=== PATIENT | male | born 1960 | race Caucasian/White ===

== ENCOUNTER 2018-12-21 13:09 | Outpatient (CLI) | payer MEDICARE, MEDICAID ==
[~2018-12-21 13:09] MED LIST: BARIUM SULFATE 340 ML SUSP.RECON***PROCEDURE AREA ONLY**DONT ENTER PO ONE
== END 2018-12-21 23:59 | disposition home or self-care (01) ==
LOC: RAD 13:09
PROVIDERS: ATTEND Nurse Practitioner Family
DX: R13.14 Dysphagia, pharyngoesophageal phase (principal); K21.9 Gastro-esophageal reflux disease without esophagitis
CPT/HCPCS: 74230

== ENCOUNTER 2019-04-29 04:15 | Emergency (ER) | payer MEDICARE, MEDICAID ==
[~2019-04-29] VITALS: Ht 170.2 cm; Wt 48.0 kg
--- NOTE | 2019-04-29 04:35 | NUR ---
MATHEW RESTREPO MD, RECEIVED VO FOR CTS
[2019-04-29] MEDS ORDERED: OMEP40CA13 PO (04:41)
[2019-04-29] MEDS ORDERED: CALC-1197 PO (04:41)
[2019-04-29] MEDS ORDERED: BENZ1TAB7 PO (04:41)
[2019-04-29] MEDS ORDERED: DOCU-281 PO (04:41)
[2019-04-29] MEDS ORDERED: OXYB5TAB16 PO (04:41)
[2019-04-29] MEDS ORDERED: CETI-194 PO (04:41)
[2019-04-29] MEDS ORDERED: QUET50TA22 PO ×2 (04:41→04:44)
[2019-04-29] MEDS ORDERED: FLUV50TA3 PO (04:41)
[2019-04-29] MEDS ORDERED: [UNRECOGNIZED DRUG - OTHER] PO (04:41)
[2019-04-29] MEDS ORDERED: PRAZ1CAP5 PO (04:44)
[2019-04-29] MEDS ORDERED: FLUT50DI3 IH (04:44)
--- NOTE | 2019-04-29 04:59 | NUR ---
CAREGIVER SAYS HE IS MOVING AROUND TOO MUCH AND WILL NEED TO BE MEDICATED FOR CT.
[2019-04-29] MEDS ORDERED: morphine 4 MG/ML inj SYRINge IV ONE (05:15)
[2019-04-29] MEDS ORDERED: normal saline 1000ML IV soln IVB ONE (05:15)
[2019-04-29] MEDS ORDERED: ondansetron/PF 4mg/2ml inj IV ONE (05:15)
[2019-04-29] MEDS ORDERED: NORMAL SALINE IV ONE (05:30)
[2019-04-29] MEDS ORDERED: KETAMINE IV ONE (05:30)
[2019-04-29 06:14] LABS: CLARITY,URINE CLOUDY (Clear); COLOR,URINE YELLOW (Yellow); GLUCOSE, URINE NEGATIVE (Neg); KETONES,URINE NEGATIVE (Neg); LEUKOCYTE ESTERASE ,URINE LARGE (Neg); NITRITES, URINE NEGATIVE (Neg); OCCULT BLOOD,URINE TRACE-INTACT (Neg); PROTEIN,URINE NEGATIVE (Neg); UROBILINOGEN,URINE 0.2 E.U/dL (0.2-1.0)
[2019-04-29 06:19] LABS: UA COLLECTION TYPE STRAIGHT CATH
[2019-04-29 06:20] LABS: BACTERIA,URINE 4+ /HPF (Neg); MUCUS STRANDS FEW /LPF (Neg); SQUAMOUS EPITHELIAL CELL,UR FEW /LPF (FEW); WBC,URINE TNTC /HPF (0-4)
[2019-04-29 06:23] LABS: BASOPHILS % (AUTO) 0.2 % (0-1); EOSINOPHILS % (AUTO) 0 % (0-6); HEMATOCRIT 34.8 % (42.0-52.0); HEMOGLOBIN 11.7 g/dl (14.0-17.9); LYMPHOCYTES # (AUTO) 0.8 X10'3 (1.1-4.8); LYMPHOCYTES % (AUTO) 7.5 % (21-51); MEAN CORPUSCULAR HEMOGLOBIN 28.9 PG (27.0-31.0); MEAN CORPUSCULAR HGB CONC 33.5 g/dL (33.0-36.5); MEAN CORPUSCULAR VOLUME 86.1 FL (78-98); MEAN PLATELET VOLUME 7.6 FL (7.4-10.4); MONOCYTES # (AUTO) 0.6 X10'3 (0-0.9); MONOCYTES % (AUTO) 5.6 % (2-12); NEUTROPHILS # (AUTO) 9.8 X10'3 (1.8-7.7); NEUTROPHILS % (AUTO) 86.7 % (42-75); PARTIAL THROMBOPLASTIN TIME 26 SECONDS (22-32); PLATELET COUNT 166 X10'3 (140-440); RED BLOOD COUNT 4.04 X10'6 (4.70-6.10); RED CELL DISTRIBUTION WIDTH 13.2 % (11.5-14.5); WHITE BLOOD COUNT 11.3 X10'3 (4.5-11.0)
[2019-04-29 06:24] LABS: ALANINE AMINOTRANSFERASE 25 U/L (12-78); ALBUMIN 3.4 G/DL (3.4-5.0); ALKALINE PHOSPHATASE 77 IU/L (46-116); ANION GAP 5 (8-16); ASPARTATE AMINO TRANSFERASE 21 U/L (10-37); BILIRUBIN,TOTAL 0.2 MG/DL (0.1-1.0); BLOOD UREA NITROGEN 14 MG/DL (7-18); CALCIUM 8.6 MG/DL (8.5-10.1); CHLORIDE 107 MMOL/L (99-107); GLUCOSE 109 MG/DL (70-104); SODIUM 144 MMOL/L (135-145); TOTAL CARBON DIOXIDE 32.4 MMOL/L (24-32); TOTAL PROTEIN 6.8 G/DL (6.4-8.2); eGFR > 90 ML/MIN
[2019-04-29 06:25] LABS: CREATINE KINASE 98 U/L (39-308); LIPASE 71 U/L (73-393); MAGNESIUM 1.7 MG/DL (1.5-2.4)
[2019-04-29] MEDS ORDERED: CefTRIAXone/D5W-Rocephin 1gm 50 ML IV ONE (06:25)
--- NOTE | 2019-04-29 07:11 | NUR ---
NEW AMMONIA TEST DRAWN AND SENT TO LAB.
[2019-04-29] MEDS ORDERED: MIDAZolam 5mg/ml 2ml vial IV ONE (07:40)
[2019-04-29 10:51] VITALS: BP 99/51
[2019-04-29] MEDS ORDERED: CEPH500C5 PO (10:53)
[2019-05-04] MEDS ORDERED: FLUT16SP2 BOTHNARES (14:52)
[2019-05-04] MEDS ORDERED: MELA3TAB64 PO (14:54)
== END 2019-04-29 11:06 | disposition home or self-care (01) ==
LOC: ER 04:16
DX: S09.8XXA Other specified injuries of head, initial encounter (principal); N39.0 Urinary tract infection, site not specified; Z79.899 Other long term (current) drug therapy; Z79.2 Long term (current) use of antibiotics; W18.39XA Other fall on same level, initial encounter; Y93.89 Activity, other specified; Y92.89 Other specified places as the place of occurrence of the external cause; Y99.8 Other external cause status
CPT/HCPCS: 36415; 70450; 71045; 72125; 80053; 81001; 82140; 82550; 83690; 83735; 84484; 85025; 85610; 85730; 87088; 87186; 93005; 96361; 96365; 96368; 96375; 99284; J0696; J2250; J2270; J2405; J7030; P9612; 87077

== ENCOUNTER 2019-05-09 09:15 | Day surgery (SDC) | payer MEDICARE, MEDICAID ==
[~2019-05-09] VITALS: Ht 167.6 cm; Wt 47.6 kg
[~2019-05-09 09:15] MED LIST changes: -BARIUM SULFATE 340 ML SUSP.RECON***PROCEDURE AREA ONLY**DONT ENTER PO ONE; +BENZ1TAB7 PO; +CALC-1197 PO; +CEPH500C5 PO; +CETI-194 PO; +DOCU-281 PO; +FLUT16SP2 BOTHNARES; +FLUV50TA3 PO; +MELA3TAB64 PO; +OMEP40CA13 PO; +OXYB5TAB16 PO; +PRAZ1CAP5 PO; +QUET50TA22 PO; +[UNRECOGNIZED DRUG - OTHER] PO
[2019-05-09 09:30] VITALS: BP 116/44
[2019-05-09] MEDS ORDERED: LIDOcaine 1% 30ml preserv. free vial ONE (10:30)
[2019-05-09] MEDS ORDERED: BUPIVAcaine/PF 2.5 mg/ml (0.25%) 30ml vial ONE (10:30)
[2019-05-09] MEDS ORDERED: MIDAZolam 5mg/ml 2ml vial ONE (11:39)
[2019-05-09] MEDS ORDERED: MIDAZolam 5mg/ml 2ml vial IV ONE (11:50)
[2019-05-09] MEDS ORDERED: neostigmine methylsulfate 1 MG/ML 10ml vial ONE (11:52)
[2019-05-09] MEDS ORDERED: glycopyrrolate 0.2mg/ml inj ONE (11:52)
[2019-05-09] MEDS ORDERED: dexamethasone sod phosphate 10mg/ml inj ONE (11:52)
[2019-05-09] MEDS ORDERED: sevoflurane 250ml liquid IH ONE (11:52)
[2019-05-09] MEDS ORDERED: fentaNYL/PF 50MCG/1 ML 2ML syringe ONE (11:53)
[2019-05-09] MEDS ORDERED: famotidine 20mg tablet PO ONE (12:01)
[2019-05-09] MEDS ORDERED: cefazolin/dext.iso 2gm/50ml 50 ML IV ONE (12:01)
[2019-05-09] MEDS ORDERED: ringers solution, lacted 1,000 ML IV SCH ×2 (12:01→12:35)
[2019-05-09] MEDS ORDERED: phenylephrine 10mg/ml inj. ONE (12:08)
[2019-05-09] MEDS ORDERED: LIDOcaine 2% (20mg/ml) 5ml vial ONE (12:10)
[2019-05-09] MEDS ORDERED: rocuronium 10mg/ml inj IV ONE (12:10)
[2019-05-09] MEDS ORDERED: ondansetron/PF 4mg/2ml inj ONE (12:10)
[2019-05-09] MEDS ORDERED: propofol inj 20 ML IV ONE (12:10)
[2019-05-09] MEDS ORDERED: ondansetron/PF 4mg/2ml inj IV PRN (12:35)
[2019-05-09] MEDS ORDERED: fentaNYL/PF 50MCG/1 ML 2ML syringe IV PRN ×2 (12:35)
[2019-05-09] MEDS ORDERED: labetalol 20mg/4ml (5mg/ml) syringe IV PRN (12:35)
[2019-05-09] MEDS ORDERED: morphine 4 MG/ML inj SYRINge IV PRN ×2 (12:35)
[2019-05-09] MEDS ORDERED: hydrALAZINE 20mg/ml inj. IV PRN (12:35)
[2019-05-09 13:30] VITALS: BP 122/80
--- NOTE | 2019-05-09 13:30 | NUR ---
ADMITTED TO PACU FROM OR ACCOMPANIED BY ANESTHESIA. INTIAL PHYSICAL ASSESSMENT DONE AND RECORDED. AWAKE AND RESPONSE ON ARRIVE YO PACU, REPORT RECEIVED FROM ANESTHESIA.
[2019-05-09] MEDS ORDERED: HYDROcodone/acetaminophen 5mg/325mg tablet PO ONE (13:45)
--- NOTE | 2019-05-09 13:45 | NUR ---
PT IS AWAKE AND PULLING OUT ALL LINES, MILDLY COMBATIVE. NON VERBAL ATTEMPTS TO DETERMINE IF PATIENT IN PAIN UNSUCCESSFUL. IV LINE PULLED OUT ATTEMPTING TO PULL AT BANDAIDS ON ABDOMEN. UNABLE TO ADMINISTER IV MEDS. 2 NORCO GIVEN ORALLY WITH HELP OF CAREGIVER. ASSISTANCE OF 2 PEOPLE REQUIRED TO DRESS PATIENT, AND GET IN W/C. CALL PLACED TO DR. VARGAS FOR APPROVAL TO DISCHARGE, APPROVAL RECEIVED FOR D/C.
--- NOTE | 2019-05-09 13:50 | NUR ---
AWAITING 2ND CAREGIVER PATIENT CURRENT CAREGIVER IS UNABLE TO CONTROL. CURRENTLY REMAINS IN WHEELCHAIR, HAS REMOVED ABDOMINAL BANDAIDS ON 3 SEPARATE OCCASIONS, HAVE BEEN REPLACED WITH NEW. INSTRUCTIONS GIVEN TO CAREGIVER TO ATTEMPT TO KEEP BANAIDS ON TO PROTECT STERI-STRIPS. SUGGEST BINDER FOR PROTECTION. ATTEMPTS TO CALM WITH STUFFED ANIMAL SOMEWHAT EFFECTIVE.
--- NOTE | 2019-05-09 14:00 | NUR ---
2ND CAREGIVER HERE PT DISCHARGED VIA W/C......REQUEST CAREGIVER CALLBACK WHEN ARRIVED AT HOME FOR UPDATE ON STATUS.
== END 2019-05-09 14:00 | disposition home or self-care (01) ==
LOC: PAS 09:15
PROVIDERS: ATTEND Surgery
DX: K40.20 Bilateral inguinal hernia, without obstruction or gangrene, not specified as recurrent (principal); K21.9 Gastro-esophageal reflux disease without esophagitis; F72 Severe intellectual disabilities; Z79.899 Other long term (current) drug therapy
CPT/HCPCS: 49650; 82948; C1781; J1100; J2001; J2250; J2370; J2405; J2704; J2710; J3010; J3490; A4215; A4314; A4618; J7120

== ENCOUNTER 2019-07-01 19:42 | Emergency (ER) | payer MEDICARE, MEDICAID ==
[~2019-07-01] VITALS: Ht 182.9 cm; Wt 39.0 kg
[2019-07-01 20:06] VITALS: BP 106/72
== END 2019-07-01 21:50 | disposition home or self-care (01) ==
LOC: ER 19:43
DX: S01.81XA Laceration without foreign body of other part of head, initial encounter (principal); Z79.899 Other long term (current) drug therapy; W18.39XA Other fall on same level, initial encounter; Y93.89 Activity, other specified; Y92.89 Other specified places as the place of occurrence of the external cause; Y99.8 Other external cause status
CPT/HCPCS: 12011; 99283

== ENCOUNTER 2019-10-12 07:14 | Emergency (ER) | payer MEDICARE, MEDICAID ==
[~2019-10-12] VITALS: Ht 170.2 cm; Wt 46.4 kg
[2019-10-12 07:27] VITALS: BP 98/71
== END 2019-10-12 08:03 | disposition home or self-care (01) ==
LOC: ER 07:14
DX: S01.01XA Laceration without foreign body of scalp, initial encounter (principal); Z79.2 Long term (current) use of antibiotics; Z79.899 Other long term (current) drug therapy; W18.39XA Other fall on same level, initial encounter; Y93.89 Activity, other specified; Y92.89 Other specified places as the place of occurrence of the external cause; Y99.8 Other external cause status
CPT/HCPCS: 99284

== ENCOUNTER 2020-07-13 05:04 | Emergency (ER) | payer MEDICARE, MEDICAID ==
[~2020-07-13] VITALS: Ht 170.2 cm; Wt 47.3 kg
[~2020-07-13 05:04] MED LIST changes: -CALC-1197 PO; +CALC-1215 PO; -CEPH500C5 PO; +MELA3TAB39 PO; -MELA3TAB64 PO
[2020-07-13] MEDS ORDERED: LIDOcaine/epinephrine/tetracaine TOPICAL sol 3 ML syringe TOP ONE (06:00)
--- NOTE | 2020-07-13 06:57 | NUR ---
DERMABOND APPLIED TO WOUND PER DR. GIVENS. PATIENT TOLERATED FAIR WITH ASSISTANCE FROM CAREGIVERS.
== END 2020-07-13 07:06 | disposition home or self-care (01) ==
LOC: ER 05:04
DX: S01.01XA Laceration without foreign body of scalp, initial encounter (principal); R62.50 Unspecified lack of expected normal physiological development in childhood; Z79.899 Other long term (current) drug therapy; W22.8XXA Striking against or struck by other objects, initial encounter; Y93.89 Activity, other specified; Y92.89 Other specified places as the place of occurrence of the external cause; Y99.9 Unspecified external cause status
CPT/HCPCS: 12001; 99282; 99283